=== PATIENT | male | born 1970 | race Caucasian/White ===

== ENCOUNTER 2019-01-27 13:52 | Emergency (ER) | payer BC, OTHER ==
[~2019-01-27] VITALS: Ht 177.8 cm; Wt 90.0 kg
[~2019-01-27 13:52] MED LIST: CYCL10TA7 PO; HYDR-3612 PO; HYDR-3980 PO; KEPPRA PO; NAPR-985 PO; PHEN100C PO
[2019-01-27 14:12] VITALS: Ht 177.8 cm; Wt 90.0 kg
[2019-01-27] MEDS ORDERED: KETOROLAC 30 MG INJ IM STA (16:32)
[2019-01-27] MEDS ORDERED: morphine 4 MG/ML VIAL IM STA (16:32)
[2019-01-27] MEDS ORDERED: morphine 4 MG/ML VIAL IV STA (16:48)
[2019-01-27] MEDS ORDERED: KETOROLAC 30 MG INJ IV STA (16:48)
[2019-01-27] MEDS ORDERED: DEXAMETHASONE 10 MG/ML 1 ML INJ IM ONE (17:00)
[2019-01-27] MEDS ORDERED: morphine 2 MG INJ IV STA (18:20)
[2019-01-27 18:25] VITALS: BP 126/73; PULSE 72; RESP 18
== END 2019-01-27 18:26 | disposition home or self-care (01) ==
LOC: FTE 13:52
DX: M54.5 Low back pain (principal)
CPT/HCPCS: 72072; 72100; 96372; 96374; 96375; 96376; 99284; J1100; J1885; J2270